=== PATIENT | female | born 1960 | race Caucasian/White ===

== ENCOUNTER 2017-04-07 16:50 | Emergency (ER) | payer OTHER ==
--- NOTE | ~2017-04-07 | ER ---
PATIENT'S NAME: [facility] AGE: 57 Y [address] ROOM: [place] [id number] LOCATION: [facility] ADMIT DATE: 04/07/2017 ER/Outpatient Report DISCHARGE DATE: 04/07/2017 FAMILY PHYSICIAN: PHYSICIAN, NO ATTENDING PHYSICIAN: Jeison Barba Time of Arrival: 1654 hours. Time of Exam: 1654 hours. CHIEF COMPLAINT: Finger laceration. HISTORY OF PRESENT ILLNESS: The patient states just prior to arrival she was using a utility knife to cut down cardboard boxes when she cut her left middle finger through the tip of the nail. No other injuries with the incident. ALLERGIES: SHE HAS NO KNOWN ALLERGIES. MEDICATIONS: Currently on antibiotic for sinus infection. PAST MEDICAL HISTORY: Currently has a sinus infection. PAST SURGERIES: Hysterectomy. SOCIAL HISTORY: Denies use of tobacco or drugs. Drinks alcohol on a social basis. States her last tetanus was 2 years ago. REVIEW OF SYSTEMS: Negative other than those mentioned in the HPI. PHYSICAL EXAMINATION: VITAL SIGNS: She weighed 55.9 kg. Blood pressure was 139/64, pulse is 76, respirations 16, temperature of 97.9 tympanic, and O2 saturation was 97% on room air. GENERAL: She is awake, alert, and oriented x4. SKIN: [place], warm, and dry. RESPIRATIONS: Even and nonlabored. Lung sounds were clear throughout. HEART: Regular rate and rhythm. MUSCULOSKELETAL: The patient has a laceration to the left middle finger that PATIENT'S NAME: [facility] AGE: 57 Y [address] ROOM: [place] [id number] LOCATION: [facility] ADMIT DATE: 04/07/2017 ER/Outpatient Report DISCHARGE DATE: 04/07/2017 FAMILY PHYSICIAN: PHYSICIAN, NO ATTENDING PHYSICIAN: Jeison Barba extends through the nail, is approximately 1.5 cm long. She has strong radial and ulnar pulses. Nail bed is tender to touch. LABORATORY DATA AND X-RAYS: X-ray was completed. No bony abnormality is seen. EMERGENCY ROOM COURSE: A digital block to the finger was completed. The area was then cleansed well with saline and Betadine and closed with 4-0 Ethilon x2 stitches. I did place 1 stitch through the nail, left part of it open to drain and then instructed the patient on the plan. IMPRESSION: Finger laceration with simple closure. PLAN: Keep the dressing on tonight, keeping it as clean and dry as possible, change the dressing tomorrow and then on a daily basis. Suture removal should be in 7-10 days. Tylenol or ibuprofen as needed. Follow up with your primary provider in the next 2 to 3 days if symptoms warrant. She verbalized understanding. BILL TOMLIN APRN FOR DO MARYLIN MCADAMS/vasile /[id number] d: 04/07/172051 t: 04/14/172044, OUTPATIENT REPORT
== END 2017-04-07 17:53 | disposition disaster alternative care site (69) ==
LOC: GACC 16:50
PROC: 0HQGXZZ Repair Left Hand Skin, External Approach (ICD-10-PCS; principal; 2017-04-07)
DX: S61.213A Laceration without foreign body of left middle finger without damage to nail, initial encounter (principal); Z90.710 Acquired absence of both cervix and uterus; W26.0XXA Contact with knife, initial encounter